=== PATIENT | male | born 1990 | race Hispanic/Latino ===

== ENCOUNTER 2018-07-17 11:39 | Emergency (ER) | payer SELFPAY ==
[2018-07-17 11:46] VITALS: BP 138/91; PULSE 71; RESP 19; TEMP 97.7; O2SAT 98
[2018-07-17] MEDS ORDERED: Sodium Chloride 0.9% 1,000 ML IV ONE (12:26)
--- NOTE | 2018-07-17 12:33 | ED PDOC ---
HPI: CCC, URI, Sore Throat Time Seen by Provider: 07/17/18 12:13 Chief Complaint (Nursing): ENT Problem Chief Complaint (Provider): ENT Problem History Per: Patient History/Exam Limitations: no limitations Associated Symptoms: Sore Throat, Nasal Congestion Additional Complaint(s): Abel Clark is 28 year old male with a past medical history of depression, who presents to the emergency department after having a syncopal episode prior to arrival. Patient was on a train in [place] and started to have a left sided nosebleed associated with dizziness. He started to feel hot at that time and began to slump over in train seat. Sister at bedside states he lost consciousness for a few seconds; patient further reports that he has had cold symptoms for the last few days including congestion and sore throat. Patient has been using OTC for symptoms including ibuprofen and nasal sprays. He reports since he has been using the nasal spray, he has been getting intermittent nosebleeds but did not have the other symptoms. Patient does report to having a history of syncope as a kid but describes it as vasovagal episodes. He states he feels back to normal since this episode occurred and has no complaints currently. 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 Otherwise: (-) lightheadedness, (-) trauma, (-) headache, (-) tinnitus, (-) hearing loss, (-) chest pain, (-) dyspnea, (-) fever, (-) vomiting, (-) diarrhea (-) cough (-) rash (-) substance abuse. PMD in [place] (patient visiting [facility] - returns home tomorrow) Past Medical History Reviewed: Historical Data, Nursing Documentation, Vital Signs Vital Signs: Last Vital Signs Temp 97.7 F 07/17/18 11:46 Pulse 71 07/17/18 11:46 Resp 19 07/17/18 11:46 BP 138/91 H 07/17/18 11:46 Pulse Ox 98 07/17/18 11:46 - Medical History PMH: Depression Other PMH: Syncope as a child - Surgical History Surgical History: No Surg Hx - Family History Family History: States: Unknown Family Hx - Social History Current smoker - smoking cessation education provided: No Alcohol: Occasional Drugs: Denies - Allergies Allergies/Adverse Reactions: Allergies Allergy/AdvReac Type Severity Reaction Status Date / Time No Known Allergies Allergy Verified 07/17/18 12:09 Review of Systems ROS Statement: Except As Marked, All Systems Reviewed And Found Negative ENT: Positive for: Nose Congestion, Throat Pain, Other (nosebleed) Neurological: Positive for: Dizziness, Other (loss of consciousness) Physical Exam - Reviewed Nursing Documentation Reviewed: Yes Vital Signs Reviewed: Yes - Physical Exam Comments: GENERALIZED APPEARANCE:Patient is awake, alert, oriented x3 in no acute distress. Resting comfortably. SKIN: Warm, dry; (-) cyanosis. HEAD: (-) scalp swelling or tenderness. EYES: (-) conjunctival pallor. ENMT: Mucous membranes moist. Airway patent, (-) stridor. Nares: patent (-) active bleeding. TMs nonbulging and nonerythematous bilaterally. Pharynx: clear, (-) erythema (-) exudate. Ear canals (-) cerumen impaction (-) erythema (-) exudate NECK: Supple, FROM (-) tenderness, (-) stiffness, (-) lymphadenopathy. CHEST AND RESPIRATORY: (-) rales, (-) rhonchi, (-) wheezes; breath sounds equal bilaterally. Respirations even and nonlabored. HEART AND CARDIOVASCULAR: (-) irregularity ABDOMEN AND GI: Soft; (-) distention, (-) tenderness, (-) rebound, (-) guarding (-) flank tenderness. EXTREMITIES: (-) deformity; (-) edema. Distal pulses: present. NEURO AND PSYCH: Mental status as above. machine maintenance mechanic: grossly intact. (-) nystagmus; Pupils equal and reactive. EOMI and painless. (-) facial asymmetry; (-) dysarthria; tongue and uvula midline. Strength symmetric. Gait: steady. Speech: clear. Cerebellar tests intact. - Laboratory Results Result Diagrams: 07/17/18 12:40 07/17/18 12:40 - ECG O2 Sat by Pulse Oximetry: 98 (RA) Pulse Ox Interpretation: Normal Medical Decision Making Medical Decision Making: Time: 12:15 Impression: syncope, sore throat, and congestion, likely viral syndrome Plan: --EKG --CMP --Drug screen --CBC with differential --PT --PTT --sodium chloride 1,000 ml --Throat culture --Accucheck --Influenza a B --Rapid strep --Urinalysis 12:38 Accucheck is 92 EKG: NSR at 65 bpm, (-) acute ST changes elevations, (-) ectopy, QTc at 405, as read by CASTILLO. 1330 Influenza: Negative Rapid Strep: Negative Utox: negative U/A: no evidence of UTI 1400 CBC and CMP grossly unremarkable. Coag profile WNL. On re-evaluation patient with no complaints. Patient remains AAOx3, in no acute distress. Lungs clear to auscultation, cardiac RRR, abdomen soft, non-tender, repeat neuro exam shows no focal findings. Vitals stable. Lab/Diagnostic results d/w the patient in great detail. Diagnosis of epistaxis- resolved, syncope, viral pharyngitis/URI d/w the patient. Based on history, exam and diagnostic results, plan will be for outpatient follow up with PMD upon return home. Return parameters discussed. Patient instructed to follow-up with pmd / referral provided / the clinic in 1- 2 days without fail. Advised to take medication as prescribed. Return to the e mergency room at any time for any new or worsening symptoms. Patient states he fully agrees with and understands discharge instructions. States that he agrees with the plan and disposition. Verbalized and repeated discharge instructions and plan. I have given the patient opportunity to ask any additional questions. Scribe Attestation: Documented by Dionisio Hayden, acting as a scribe for Virginia Navarro Provider Scribe Attestation: All medical record entries made by the Scribe were at my direction and personally dictated by me. I have reviewed the chart and agree that the record a ccurately reflects my personal performance of the history, physical exam, medical decision making, and the department course for this patient. I have also personally directed, reviewed, and agree with the discharge instructions and disposition. Disposition - Clinical Impression Clinical Impression: Nosebleed, Syncope, Viral pharyngitis - Patient ED Disposition Is Patient to be Admitted: No Counseled Patient/Family Regarding: Studies Performed, Diagnosis, Need For Followup - Disposition Referrals: [facility] [Outside] Disposition: Routine/Home Disposition Time: 14:00 Condition: STABLE Additional Instructions: CONTINUE USE OF OVER THE COUNTER MEDICATIONS FOR SYMPTOMS. The emergency medical care you received today was directed at your acute symptoms. If you were prescribed any medication, please fill it and take as directed. It may take several days for your symptoms to resolve. Return to the Emergency Department if your symptoms worsen, do not improve, or if you have any other problems. Please contact your doctor in 2 days for re-evaluation and follow up / or call one of the physicians/clinics you have been referred to that are listed on the Patient Visit Information form that is included in your discharge packet. Bring any paperwork you were given at discharge with you along with any medications you are taking to your follow up visit. Our treatment cannot replace ongoing medical care by a primary care provider (PCP) outside of the emergency department. Instructions: Viral Pharyngitis, Nosebleeds, Syncope (Fainting), Sore Throat in Adults, Viral Upper Respiratory Infection, Adult (DC) Forms: [employer] (Armenian) Print Language: BULGARIAN - POA Present On Arrival: None Results - Lab Results Lab Results: 07/17/18 07/17/18 07/17/18 12:40 12:40 12:40 WBC RBC Hgb Hct MCV MCH MCHC RDW Plt Count MPV Neut % (Auto) Lymph % (Auto) [place] % (Auto) Eos % (Auto) Baso % (Auto) Neut # (Auto) Lymph # (Auto) B[place] # (Auto) Eos # (Auto) Baso # (Auto) PT INR APTT Sodium Potassium Chloride Carbon Dioxide Anion Gap BUN Creatinine Est GFR ( Amer) Est GFR (Non-Af Amer) Random Glucose Calcium Total Bilirubin AST ALT Alkaline Phosphatase Total Protein Albumin Globulin Albumin/Globulin Ratio Urine Color Yellow Urine Clarity Slighty-cloudy Urine pH 6.0 Ur Specific [place] 1.024 Urine Protein 30 Urine Glucose (UA) Neg Urine Ketones Negative Urine Blood Negative Urine Nitrate Negative Urine Bilirubin Negative Urine Urobilinogen 0.2-1.0 Ur Leukocyte Esterase Neg Urine RBC (Auto) < 1 Urine Microscopic WBC 6 H Urine Bacteria Rare Hyaline Casts 0-2 Urine Opiates Screen Negative Urine Methadone Screen Negative Ur Barbiturates Screen Negative Ur Phencyclidine Scrn Negative Ur Amphetamines Screen Negative U Benzodiazepines Scrn Negative U Oth Cocaine Metabols Negative U Cannabinoids Screen Negative Influenza Typ A,B (EIA) Grp A Beta Strep Ag Negative 07/17/18 07/17/18 07/17/18 12:40 12:40 12:40 WBC RBC Hgb Hct MCV MCH MCHC RDW Plt Count MPV Neut % (Auto) Lymph % (Auto) Benton % (Auto) Eos % (Auto) Baso % (Auto) Neut # (Auto) Lymph # (Auto) Benton # (Auto) Eos # (Auto) Baso # (Auto) PT 11.0 INR 1.0 APTT 27.9 Sodium 142 Potassium 4.0 Chloride 105 Carbon Dioxide 27 Anion Gap 14 BUN 13 Creatinine 0.9 Est GFR ( Amer) > 60 Est GFR (Non-Af Amer) > 60 Random Glucose 97 Calcium 9.7 Total Bilirubin 1.3 AST 42 ALT 70 Alkaline Phosphatase 70 Total Protein 9.1 H Albumin 5.0 Globulin 4.1 H Albumin/Globulin Ratio 1.2 Urine Color Urine Clarity Urine pH Ur Specific [place] Urine Protein Urine Glucose (UA) Urine Ketones Urine Blood Urine Nitrate Urine Bilirubin Urine Urobilinogen Ur Leukocyte Esterase Urine RBC (Auto) Urine Microscopic WBC Urine Bacteria Hyaline Casts Urine Opiates Screen Urine Methadone Screen Ur Barbiturates Screen Ur Phencyclidine Scrn Ur Amphetamines Screen U Benzodiazepines Scrn U Oth Cocaine Metabols U Cannabinoids Screen Influenza Typ A,B (EIA) Negative for flu a/b Grp A Beta Strep Ag 07/17/18 12:40 WBC 12.1 H RBC 5.28 Hgb 15.5 Hct 47.2 MCV 89.2 MCH 29.3 MCHC 32.8 L RDW 13.0 Plt Count 265 MPV 8.1 Neut % (Auto) 74.6 Lymph % (Auto) 18.5 L Benton % (Auto) 5.5 Eos % (Auto) 0.9 Baso % (Auto) 0.5 Neut # (Auto) 9.0 H Lymph # (Auto) 2.2 Benton # (Auto) 0.7 Eos # (Auto) 0.1 Baso # (Auto) 0.1 PT INR APTT Sodium Potassium Chloride Carbon Dioxide Anion Gap BUN Creatinine Est GFR ( Amer) Est GFR (Non-Af Amer) Random Glucose Calcium Total Bilirubin AST ALT Alkaline Phosphatase Total Protein Albumin Globulin Albumin/Globulin Ratio Urine Color Urine Clarity Urine pH Ur Specific [place] Urine Protein Urine Glucose (UA) Urine Ketones Urine Blood Urine Nitrate Urine Bilirubin Urine Urobilinogen Ur Leukocyte Esterase Urine RBC (Auto) Urine Microscopic WBC Urine Bacteria Hyaline Casts Urine Opiates Screen Urine Methadone Screen Ur Barbiturates Screen Ur Phencyclidine Scrn Ur Amphetamines Screen U Benzodiazepines Scrn U Oth Cocaine Metabols U Cannabinoids Screen Influenza Typ A,B (EIA) Grp A Beta Strep Ag
[2018-07-17 13:21] LABS: BASO # 0.1 K/uL (0.0-0.2); BASO % 0.5 % (0.0-2.0); EOS # 0.1 K/uL (0.0-0.7); EOS % 0.9 % (0.0-4.0); HEMOGLOBIN 15.5 g/dL (12.0-18.0); LYMPH # 2.2 K/uL (1.0-4.3); LYMPH % 18.5 % (20.0-40.0); MEAN CELL VOLUME 89.2 fl (80.0-94.0); MEAN CORPUSCULAR HEMOGLOBIN 29.3 pg (27.0-31.0); MEAN CORPUSCULAR HGB CONC 32.8 g/dL (33.0-37.0); MEAN PLATELET VOLUME 8.1 fl (7.2-11.7); MONO # 0.7 K/uL (0.0-0.8); MONO % 5.5 % (0.0-10.0); NEUT % 74.6 % (50.0-75.0); RBC 5.28 Mil/uL (4.40-5.90); WHITE BLOOD COUNT 12.1 K/uL (4.8-10.8)
[2018-07-17 13:27] LABS: URINE BACTERIA RARE (<OCC); URINE BILIRUBIN NEGATIVE (NEGATIVE); URINE BLOOD NEGATIVE (NEGATIVE); URINE CLARITY SLIGHTY-CLOUDY (Clear); URINE COLOR YELLOW (YELLOW); URINE GLUCOSE (UA) NEG (NEGATIVE); URINE HYALINE CAST 0-2 /hpf (0-2); URINE LEUKOCYTE ESTERASE NEG Leu/uL (Negative); URINE PROTEIN 30 mg/dL (NEGATIVE); URINE UROBILINOGEN 0.2-1.0 mg/dL (0.2-1.0)
[2018-07-17 13:31] LABS: PARTIAL THROMBOPLASTIN TIME 27.9 Seconds (25.6-37.1)
[2018-07-17 13:38] LABS: ALB/GLOB RATIO 1.2 (1.0-2.1); ALT/SGPT 70 U/L (21-72); AST/SGOT 42 U/L (17-59); BLOOD UREA NITROGEN 13 mg/dl (9-20); CALCIUM 9.7 mg/dL (8.4-10.2); GFR NON-AFRICAN AMERICAN > 60
[2018-07-17 13:50] LABS: BARBITURATES, UR NEGATIVE (NEGATIVE); BENZODIAZEPINES, UR NEGATIVE (NEGATIVE); OPIATES, UR NEGATIVE (NEGATIVE); PHENCYCLIDINE, UR NEGATIVE (NEGATIVE)
--- NOTE | 2018-07-17 18:54 | CARD ---
APPROVED REPORT Date of service: 07/17/2018 EKG Measurement Heart [id number] <Conclusion> Normal sinus rhythm Normal ECG
== END 2018-07-17 14:19 | disposition home or self-care (01) ==
LOC: H.ER 11:39
DX: R55 Syncope and collapse (principal); R04.0 Epistaxis; J02.9 Acute pharyngitis, unspecified; F32.9 Major depressive disorder, single episode, unspecified
CPT/HCPCS: 80053; 81003; 82948; 85025; 85610; 85730; 87070; 87430; 87804; 93005; 99283; G0480; J7030